=== PATIENT | male | born 2000 | race Caucasian/White ===

== ENCOUNTER 2021-10-12 19:13 | Emergency (ER) | payer OTHER ==
[~2021-10-12] VITALS: Ht 182.9 cm; Wt 86.4 kg
[2021-10-12 19:26] VITALS: TEMP 97.2
[2021-10-12] MEDS ORDERED: CEPHALEXIN500 M1 PO (20:44)
[2021-10-12 20:52] VITALS: BP 125/80; PULSE 90
== END 2021-10-12 20:57 | disposition home or self-care (01) ==
LOC: COL.ER 19:13
DX: S91.311A Laceration without foreign body, right foot, initial encounter (principal); F17.200 Nicotine dependence, unspecified, uncomplicated; Z23 Encounter for immunization; W26.8XXA Contact with other sharp object(s), not elsewhere classified, initial encounter; Y93.67 Activity, basketball

== ENCOUNTER → 2021-10-26 | Outpatient (CLI) | payer OTHER ==
[~2021-10-26] MED LIST: CEPHALEXIN500 M1 PO
[2021-10-26 17:04] VITALS: BP 128/73; PULSE 74; TEMP 98.7
== END ==
LOC: COL.ER 16:45
DX: Z48.02 Encounter for removal of sutures (principal); Z28.311 Partially vaccinated for COVID-19